=== PATIENT | male | born 1960 | race Caucasian/White ===

== ENCOUNTER 2019-05-30 02:17 | Emergency (ER) | payer SELFPAY ==
[2019-05-30] MEDS ORDERED: NORMAL SALINE 1000 ML 1,000 ML IV ONE (02:57)
--- NOTE | 2019-05-30 03:19 | ER Document Report ---
ED Fall - General Chief Complaint: Fall Stated Complaint: FALL Time Seen by Provider: 05/30/19 02:49 Notes: Patient is a 59-year-old male that comes to the emergency department for chief complaint of alcohol intoxication, fall, head injury. Patient reportedly drank about 20 beers over the course of the afternoon and evening, fell off the bars tool, hit the back of his head. Patient comes by EMS. He denies vomiting. He denies any other locations of pain except for the back of his head. He takes both Plavix and Eliquis. TRAVEL OUTSIDE OF THE [place] IN LAST 30 DAYS: No Past Medical History - General Information source: Patient, Emergency Med Personnel - Social History Smoking Status: Never Smoker Frequency of alcohol use: Social Drug Abuse: None Lives with: Spouse/Significant other Family History: Reviewed & Not Pertinent - Past Medical History Cardiac Medical History: Reports: Hx Coronary Artery Disease Past Surgical History: Reports: Hx Bowel Surgery, Hx Cardiac Surgery - Immunizations Hx Diphtheria, Pertussis, Tetanus Vaccination: Yes Review of Systems - Review of Systems Constitutional: No symptoms reported EENT: No symptoms reported Cardiovascular: No symptoms reported Respiratory: No symptoms reported Gastrointestinal: No symptoms reported Genitourinary: No symptoms reported Male Genitourinary: No symptoms reported Musculoskeletal: See HPI Skin: See HPI Hematologic/Lymphatic: No symptoms reported Neurological/Psychological: See HPI Physical Exam - Vital signs Vitals: Temp Pulse Resp BP Pulse Ox 97.7 F 74 17 115/70 93 05/30/19 03:23 05/30/19 03:23 05/30/19 03:23 05/30/19 03:23 05/30/19 03:23 - Notes Notes: GENERAL: Alert, interacts well. No acute distress. HEAD: Normocephalic, there is a small abrasion and hematoma over the posterior scalp but no open bleeding wounds otherwise. No signs of trauma otherwise. EYES: Pupils equal, round, and reactive to light. Extraocular movements intact. ENT: Oral mucosa moist, tongue midline. Oropharynx unremarkable. Airway patent. Nares patent, no nasal septal hematoma, TM's intact. NECK: Full range of motion. Supple. Trachea midline. LUNGS: Clear to auscultation bilaterally, no wheezes, rales, or rhonchi. No respiratory distress. Old midline CABG scar. HEART: Regular rate and rhythm. No murmur ABDOMEN: Soft, non-tender. Non-distended. Colostomy bag present, unremarkable. No signs of trauma. GENITOURINARY: Deferred EXTREMITIES: Moves all 4 extremities spontaneously. No edema, normal radial and dorsalis pedis pulses bilaterally. No cyanosis. BACK: no cervical, thoracic, lumbar midline tenderness. No saddle anesthesia, normal distal neurovascular exam. Moves all extremities in full range of motion. NEUROLOGICAL: Alert and oriented x3. Normal speech. Cranial nerves II through XII grossly intact. PSYCH: Normal affect, normal mood. SKIN: Warm, dry, normal turgor. No rashes or lesions noted. Course - Re-evaluation Re-evalutation: Patient vomited. He was given Zofran and IV fluids. Despite this he is talking without slurring his words, he is alert, oriented, he is actually very well- appearing. There is only a small abrasion on the back of his head. CT of the head performed because of EtOH, blood thinner use, head trauma, however this was unremarkable. Neck unremarkable as well. Patient has no signs of trauma anywhere else and has no other complaints. On reevaluation to discuss his findings is already here, I discussed results with her as well. Patient was able to get up and ambulate without any ataxia, he is clinically sober now. He has not vomited again, he is not complaining of anything at this time. I discussed strict return precautions in detail, discussed expectations. Patient and state understanding and agreement. I did have a pending chemistry but is already here and I do not have any indication that you would perform additional work-up because patient is so well-appearing at this time. Stable at time of discharge. - Vital Signs Vital signs: Temp Pulse Resp BP Pulse Ox 97.7 F 74 17 115/70 93 05/30/19 03:23 05/30/19 03:23 05/30/19 03:23 05/30/19 03:23 05/30/19 03:23 - Laboratory Result Diagrams: 05/30/19 03:25 Discharge - Discharge Clinical Impression: Alcohol intoxication Qualifiers: Complication of substance-induced condition: uncomplicated Qualified Code(s): F10.920 - Alcohol use, unspecified with intoxication, uncomplicated Head injury Qualifiers: Encounter type: initial encounter Qualified Code(s): S09.90XA - Unspecified injury of head, initial encounter Condition: Stable Disposition: HOME, SELF-CARE Additional Instructions: The CAT scan of your head and neck do not show any concerning findings. Keep the wound clean. Clean the abrasion area over the back of your head with soap and water. He will likely have some postconcussive symptoms. See postconcussive syndrome listed below. See head injury precautions listed below. Return for any concerning symptoms. Head Injury Precautions At this point, there is no evidence that your head injury is serious. Observation is necessary, however. Take only clear liquids for the first few hours, unless told otherwise by the doctor. If no pain medication was prescribed, you may take acetaminophen according to the directions on the bottle. Do not take any medication that may alter your level of alertness (unless you've discussed it with the doctor first). Limit activity for the first 24 hours. Bed rest is best. During the first 24 hours, check to see approximately every two to three hours that the patient is easily arousable, responds normally, and can perform common tasks such as walking without difficulty. Contact your doctor or go to the hospital if any of the following things occur: Persistent vomiting, difficulty in arousing the patient, worsening or continued headache, or failure to improve as expected. Head injuries can cause symptoms that persist for a few days or even a few weeks. Post-Concussion Syndrome Post-concussion syndrome often follows a mild head injury. Dizziness, mild nausea, mild headache, trouble concentrating, and a general sense of "not being right" may persist for a week or two. This is a frequent complication of concussion. However, if the symptoms worsen, or new symptoms develop, you should be re-examined by the physician. There is no specific cure for post-concussion syndrome. You can take mild pain medication such as ibuprofen or acetaminophen. While you should not drive if you are dizzy, you can get back to your regular activities as quickly as the symptoms will allow. And while vigorous exercise may worsen the headache, mild physical activity often is helpful. Sitting and thinking about your symptoms will worsen them. If difficulties continue, you may need referral for special therapy to help you regain full mental function. Call the physician if you are worsening, or if symptoms are still present in one week. Report any new symptoms immediately. Prescriptions: Ondansetron [Zofran Odt 4 mg Tablet] 1 - 2 tab PO Q4H PRN #15 tab.rapdis PRN Reason: For Nausea/Vomiting
[2019-05-30 03:29] VITALS: BP 115/70
--- NOTE | 2019-05-30 03:46 | RADIOLOGY REPORT (SQ) ---
EXAM DESCRIPTION: CT HEAD WITHOUT IV CONTRAST COMPLETED DATE/TME: 05/30/2019 02:56 CLINICAL HISTORY: 59 years, Male, ETOH, blood thinners, head injury COMPARISON: None. TECHNIQUE: 373 Images stored on PACS. All CT scanners at this facility use dose modulation, iterative reconstruction, and/or weight based dosing when appropriate to reduce radiation dose to as low as reasonably achievable (ALARA). [facility]: Dose Right [facility]: CareDose [facility]: Dose Right [facility]: Teradose 4D [facility]: Sensity Systems LIMITATIONS: None. FINDINGS: The globes are intact. Minor mucosal thickening of the right maxillary sinus. No displaced or depressed skull fracture. No intra or extra-axial hemorrhage. CT is limited for evaluation of acute infarct. No CT evidence for large or territorial acute infarct. Mild atrophy. No mass or midline shift IMPRESSION: No acute intracranial abnormality TECHNICAL DOCUMENTATION: Quality ID # [id number]: Final reports with documentation of one or more dose reduction techniques (e.g., Automated exposure control, adjustment of the mA and/or kV according to patient size, use of iterative reconstruction technique) copyright 2011 [employer]- All Rights Reserved
--- NOTE | 2019-05-30 03:57 | RADIOLOGY REPORT (SQ) ---
EXAM: CT cervical spine without intravenous contrast CLINICAL DATA: 59-year-old male, positive EtOH, on blood thinners, head injury. TECHNICAL DATA: Multiple high-resolution thin axial CT images were performed through the cervical spine followed by sagittal and coronal reconstructed images. The CT study is performed according to ALARA (as low as reasonably achievable) or ALARA/IMAGE GENTLY, with automatic adjustment of mA and/or kV according to patient size. Performed on: 05/30/2019 at 3:25 AM COMPARISONS: None. FINDINGS: The cervical vertebrae are normal in height. There is straightening of the normal cervical lordosis. There is moderate disc space narrowing at C5-C6 and C6-C7 and mild disc space narrowing at C4-C5. There is degenerative spurring and subchondral sclerosis at these levels. Bone mineralization is normal. The atlanto-axial articulation is preserved and the odontoid process is intact. There is normal alignment of the facet joints on the parasagittal images. There are degenerative changes of the facet joints. There is no evidence of acute fracture or subluxation. There is mild C5-C6 and C6-C7 canal stenosis secondary to disc osteophyte complexes. There is multilevel bilateral neural foraminal stenosis secondary to uncovertebral joint and facet joint hypertrophy. The prevertebral soft tissues are within normal limits. There are calcifications along the carotid arteries. The lung apices are clear. There are remote postsurgical changes of the mediastinum. There are atherosclerotic calcifications along the thoracic aortic arch. There is a coarse calcification in the right thyroid lobe. IMPRESSION: 1. No evidence of acute osseous injury involving the cervical spine. 2. Degenerative changes of the cervical spine as described above.
[2019-05-30] MEDS ORDERED: NORMAL SALINE 500 ML IV ONE (04:30)
[2019-05-30] MEDS ORDERED: ONDANSETRON HCL INJ/PF 4 MG/2 ML SDV IV ONE (04:30)
[2019-05-30] MEDS ORDERED: FAMOTIDINE 20 MG TABLET PO ONE (05:49)
== END 2019-05-30 06:19 | disposition home or self-care (01) ==
LOC: ER 02:17
DX: S09.90XA Unspecified injury of head, initial encounter (principal); W07.XXXA Fall from chair, initial encounter; F10.920 Alcohol use, unspecified with intoxication, uncomplicated; Z79.01 Long term (current) use of anticoagulants
CPT/HCPCS: 99284; 96361; 96374; 70450; 72125; J2405; J7030; J7040

== ENCOUNTER 2019-11-11 21:55 | Emergency (ER) | payer BC ==
[2019-11-11 22:59] LABS: ABSOLUTE BASOPHILS # (AUTO) 0.1 10^3/uL (0.0-0.2); ABSOLUTE EOSINOPHILS # (AUTO) 0.5 10^3/uL (0.0-0.6); ABSOLUTE LYMPHOCYTES (AUTO) 1.9 10^3/uL (0.5-4.7); ABSOLUTE MONOCYTES (AUTO) 0.7 10^3/uL (0.1-1.4); BASOPHILS % (AUTO) 1.1 % (0-2); EOSINOPHILS % (AUTO) 5.6 % (0-6); HEMATOCRIT 46.2 % (37.9-51.0); HEMOGLOBIN 15.8 g/dL (13.5-17.0); LYMPHOCYTES % (AUTO) 23.4 % (13-45); MEAN CORPUSCULAR HEMOGLOBIN 30.4 pg (27.0-33.4); MEAN CORPUSCULAR HGB CONC 34.3 g/dL (32.0-36.0); MEAN CORPUSCULAR VOLUME 89 fl (80-97); MONOCYTES % (AUTO) 8.6 % (3-13); PLATELET COUNT 284 10^3/uL (150-450); RED BLOOD COUNT 5.21 10^6/uL (4.35-5.55); RED CELL DISTRIBUTION WIDTH 14.7 % (11.5-14.0); SEGMENTED NEUTROPHILS % (AUTO) 61.3 % (42-78); TOTAL CELLS COUNTED % (AUTO) 100 %; WHITE BLOOD COUNT 8.1 10^3/uL (4.0-10.5)
[2019-11-11 23:04] LABS: INTERNATIONAL RATION (INR) 0.99; PROTHROMBIN TIME 13.1 SEC (11.4-15.4)
[2019-11-11 23:05] LABS: PARTIAL THROMBOPLASTIN TIME 29.7 SEC (23.5-35.8)
--- NOTE | 2019-11-11 23:15 | RADIOLOGY REPORT (SQ) ---
CT HEAD WITHOUT IV CONTRAST CLINICAL STATEMENT: headache, ams, patient takes plavix TECHNIQUE: Axial CT images from skull base to vertex without IV contrast. This exam was performed according to our departmental dose optimization program, and includes the following measures where applicable: automated exposure control, adjustment of the mAs and/or kVp according to patient size and/or exam, and an iterative reconstruction algorithm. COMPARISON: Unenhanced CT scan of the brain 05/30/2019 FINDINGS: There is no acute intracranial hemorrhage, mass, mass effect or abnormal extra-axial fluid collection. No evidence of an acute territorial infarct is identified. The ventricles are normal. Calcification is noted along the falx. Overall the appearance of the brain parenchyma is stable. Calvaria: The skull base and calvaria demonstrate no abnormality. Paranasal sinuses: Orbits are unremarkable. There is mild mucosal thickening in the right maxillary sinus which is stable. skull base: Unremarkable IMPRESSION: No acute process. No significant interval change.
[2019-11-11 23:18] LABS: ALBUMIN 3.6 g/dL (3.5-5.0); ALKALINE PHOSPHATASE 69 U/L (38-126); ANION GAP 7 (5-19); ASPARTATE AMINO TRANSFERASE 24 U/L (17-59); BILIRUBIN,DIRECT 0.2 mg/dL (0.0-0.4); BILIRUBIN,TOTAL 0.4 mg/dL (0.2-1.3); BLOOD UREA NITROGEN 18 mg/dL (7-20); CALCIUM 9.3 mg/dL (8.4-10.2); CARBON DIOXIDE 24 mmol/L (22-30); CHLORIDE 107 mmol/L (98-107); POTASSIUM 4.3 mmol/L (3.6-5.0); TOTAL PROTEIN 6.5 g/dL (6.3-8.2)
[2019-11-11 23:20] LABS: ALCOHOL < 10 mg/dL (NONE DETECTED)
[2019-11-11 23:21] LABS: GLUCOSE 69 mg/dL (75-110)
[2019-11-11] MEDS ORDERED: DEXTROSE 50%-WATER 25 GM/50 ML DISP.SYRIN IV ONE ×2 (23:32→23:52)
--- NOTE | 2019-11-11 23:52 | ER Document Report ---
Entered by PUSHPA BRAUN SCRIBE 11/11/19 1141 Acting as scribe for:KHANH RUBIO IV, MD ED General - General Chief Complaint: Headache Stated Complaint: HEADACHE/BLURRED VISION Mode of Arrival: Ambulatory Information source: Patient Notes: This 59 year old male patient presents to the emergency department today with complaints of a vision disturbance with an associated headache which began suddenly tonight at 8:30pm. Patient reports that he cannot see anything out of the left side of either eye. Patient states he has an intermittent stabbing sensation behind his right eye as well. Patient is on plavix. Patient complains of slight nausea as well. Patient denies a history of migraine headaches, chest pain, shortness of breath, weakness, or speech changes. TRAVEL OUTSIDE OF THE [place] IN LAST 30 DAYS: No - Related Data Allergies/Adverse Reactions: amphetamine [From Adderall] Allergy (Verified 11/11/19 22:52) dextroamphetamine [From Adderall] Allergy (Verified 11/11/19 22:52) prochlorperazine [From Compazine] Allergy (Verified 11/11/19 22:52) Home Medications: plavix, paroxetine, atorvastatin, famotidine, metoprolol Past Medical History - General Information source: Patient - Social History Smoking Status: Current Every Day Smoker Cigarette use (# per day): Yes Chew tobacco use (# tins/day): No Frequency of alcohol use: None Drug Abuse: None Lives with: Family Family History: Reviewed & Not Pertinent Patient has suicidal ideation: No Patient has homicidal ideation: No - Past Medical History Cardiac Medical History: Reports: Hx Coronary Artery Disease Renal/ Medical History: Reports: Hx Peritoneal Dialysis Past Surgical History: Reports: Hx Bowel Surgery, Hx Cardiac Catheterization, Hx Cardiac Surgery, Hx Coronary Artery Bypass Graft, Hx Coronary Stent - x6 - Immunizations Hx Diphtheria, Pertussis, Tetanus Vaccination: Yes Review of Systems - Review of Systems Constitutional: No symptoms reported EENT: See HPI, Other - Vision change Cardiovascular: No symptoms reported Respiratory: No symptoms reported Gastrointestinal: See HPI, Nausea Genitourinary: No symptoms reported Male Genitourinary: No symptoms reported Musculoskeletal: No symptoms reported Skin: No symptoms reported Hematologic/Lymphatic: No symptoms reported Neurological/Psychological: See HPI, Headaches -: Yes All other systems reviewed and negative Physical Exam - Vital signs Vitals: Pulse Ox 96 11/11/19 21:55 - Notes Notes: Physical Exam: General: Alert, appears well. HEENT: Normocephalic. Atraumatic. PERRL. Extraocular movements intact. Oropharynx clear. Left sided homonymous hemianopsia. Neck: Supple. Non-tender. Respiratory: No respiratory distress. Clear and equal breath sounds bilaterally. Cardiovascular: Regular rate and rhythm. Abdominal: Normal Inspection. Non-tender. No distension. Normal Bowel Sounds. Back: No gross abnormalities. Extremities: Moves all four extremities. Upper extremities: Normal inspection. Normal ROM. Lower extremities: Normal inspection. No edema. Normal ROM. Neurological: Normal cognition. AAOx4. Normal speech. Psychological: Normal affect. Normal Mood. Left sided homonymous hemianopsia. Normal upper and lower extremity strength. No pronator drift. Skin: Warm. Dry. Normal color. 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 per dr gaffney read, no LVO appreciated on his review of ctas - Consults dr. gaffney, [facility] neurology Time consulted: 23:48 - recommends 300 mg plavix, 325 mg asa, cta head and neck to eval for LVO Reason for consultation: 11/12/19 01:[address] eloina baum, [facility] hospitalist Time consulted: 01:53 - accepted pt for transfer to his facility Reason for consultation: 11/12/19 01:53 acute neurologic deficit Discharge - Discharge Clinical Impression: Left homonymous hemianopsia, Occlusion of right posterior cerebral artery Condition: Good Disposition: [facility] I personally performed the services described in the documentation, reviewed and edited the documentation which was dictated to the scribe in my presence, and it accurately records my words and actions.
[2019-11-12] MEDS ORDERED: HYDROMORPHONE HCL INJ/PF 2 MG/ML AMPULE IV ONE ×2 (00:05→02:05)
--- NOTE | 2019-11-12 01:34 | RADIOLOGY REPORT (SQ) ---
PROCEDURE: CT head angiography and CT neck angiography with and without contrast Completed date and time to 04/24/2020 12:13 AM CLINICAL HISTORY: 59 years Male Left sided homonymous hemianopsia COMPARISON: 11/11/2019 CT brain TECHNIQUE: Contiguous axial images obtained through the head and neck during the infusion of IV contrast. Reformatted images obtained. 3-D MIP reformatted images obtained. NASCET criteria utilized for the evaluation of any stenotic lesions. This exam was performed according to our department optimization program which includes automated exposure control, adjustment of the mA and/or kv according to patient size and/or use of iterative reconstruction technique. FINDINGS: There is calcification in the aorta and the great vessels. Calcification is present at the origins of the brachiocephalic, subclavian and carotid arteries without significant stenosis. Scattered foci of calcification are present in the common carotid arteries bilaterally with no significant stenosis present. There is calcified and noncalcified plaque in the carotid bulbs bilaterally. There is less than 50% stenosis bilaterally. There is calcification in the carotid siphons bilaterally particularly on the left. Suspect approximately 50% stenosis on the left and less than 50% stenosis on the right. There are scattered areas of irregularity in the peripheral circulation. There is nonvisualization suggesting occlusion of the distal aspect of the left [employer]. No thin section axial imaging has been provided despite request. There appears to be reconstitution of the [employer] distally. The left vertebral artery is dominant. There is calcification at the origin with approximately 50% narrowing. Some calcifications are noted in the distal left vertebral artery. The right vertebral artery is diminutive in caliber. This is particularly true following the origin of the PICA. PICA appears mildly irregular. No evidence of focal occlusion in the vertebral artery. There is calcification at the origin which is suboptimally evaluated but suspect moderate stenosis. There appears to be a small right posterior communicating artery. Small irregular superior cerebellar arteries bilaterally. IMPRESSION: Findings suggesting occlusion of a segment of the distal right [employer] with reconstitution of the more distal [employer]. The occlusion is over a distance of approximately [address] Mosley was called and notified of findings at 12:29 AM central time. 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
--- NOTE | 2019-11-12 01:34 | RADIOLOGY REPORT (SQ) ---
PROCEDURE: CT head angiography and CT neck angiography with and without contrast Completed date and time to 04/24/2020 12:13 AM CLINICAL HISTORY: 59 years Male Left sided homonymous hemianopsia COMPARISON: 11/11/2019 CT brain TECHNIQUE: Contiguous axial images obtained through the head and neck during the infusion of IV contrast. Reformatted images obtained. 3-D MIP reformatted images obtained. NASCET criteria utilized for the evaluation of any stenotic lesions. This exam was performed according to our department optimization program which includes automated exposure control, adjustment of the mA and/or kv according to patient size and/or use of iterative reconstruction technique. FINDINGS: There is calcification in the aorta and the great vessels. Calcification is present at the origins of the brachiocephalic, subclavian and carotid arteries without significant stenosis. Scattered foci of calcification are present in the common carotid arteries bilaterally with no significant stenosis present. There is calcified and noncalcified plaque in the carotid bulbs bilaterally. There is less than 50% stenosis bilaterally. There is calcification in the carotid siphons bilaterally particularly on the left. Suspect approximately 50% stenosis on the left and less than 50% stenosis on the right. There are scattered areas of irregularity in the peripheral circulation. There is nonvisualization suggesting occlusion of the distal aspect of the left [employer]OUNDS. No thin section axial imaging has been provided despite request. There appears to be reconstitution of the [employer]OUN[employer] distally. The left vertebral artery is dominant. There is calcification at the origin with approximately 50% narrowing. Some calcifications are noted in the distal left vertebral artery. The right vertebral artery is diminutive in caliber. This is particularly true following the origin of the PICA. PICA appears mildly irregular. No evidence of focal occlusion in the vertebral artery. There is calcification at the origin which is suboptimally evaluated but suspect moderate stenosis. There appears to be a small right posterior communicating artery. Small irregular superior cerebellar arteries bilaterally. IMPRESSION: Findings suggesting occlusion of a segment of the distal right [employer] GROUNDS with reconstitution of the more distal [employer]. The occlusion is over a distance of approximately 1.[address] Mosley was called and notified of findings at 12:29 AM central time. 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
[2019-11-12 03:13] VITALS: BP 160/101
--- NOTE | 2019-11-12 14:49 | EKG REPORT ---
SEVERITY:- ABNORMAL ECG - SINUS RHYTHM NONSPECIFIC T ABNORMALITIES, ANT-LAT LEADS : Confirmed by: Eli Wong MD 12-Nov-2019 14:48:59
== END 2019-11-12 02:45 | disposition short-term general hospital (02) ==
LOC: ER 21:55
DX: I66.21 Occlusion and stenosis of right posterior cerebral artery (principal); H53.462 Homonymous bilateral field defects, left side; I25.10 Atherosclerotic heart disease of native coronary artery without angina pectoris; F17.210 Nicotine dependence, cigarettes, uncomplicated; R51 Headache; R11.0 Nausea; Z79.02 Long term (current) use of antithrombotics/antiplatelets; Z79.899 Other long term (current) drug therapy; Z88.8 Allergy status to other drugs, medicaments and biological substances; Z95.5 Presence of coronary angioplasty implant and graft; Z95.1 Presence of aortocoronary bypass graft
CPT/HCPCS: 93005; 36415; 80307; 85025; 85610; 85730; 80053; 84484; 70450; 70496; 70498; 93010; J3490; J1170; 96374; 96375; 96376; 99284